=== PATIENT | male | born 1955 | race African-American/Black ===

== ENCOUNTER 2020-08-21 10:34 | Emergency (ER) | payer OTHER ==
[~2020-08-21] VITALS: Ht 170.2 cm; Wt 81.8 kg
[~2020-08-21 10:34] MED LIST: ALBU8HFA IH
[2020-08-21 11:15] VITALS: BP 145/83
[2020-08-21] MEDS ORDERED: DOXYCYCLINE HYCLATE 100 MG TABLET PO ONE (11:30)
[2020-08-21] MEDS ORDERED: ACETAMINOPHEN 500 MG TABLET PO ONE (11:30)
== END 2020-08-21 12:06 | disposition home or self-care (01) ==
LOC: EMS 10:34
DX: L03.032 Cellulitis of left toe (principal); M10.9 Gout, unspecified; J45.909 Unspecified asthma, uncomplicated; E78.00 Pure hypercholesterolemia, unspecified; I10 Essential (primary) hypertension
CPT/HCPCS: 99283